=== PATIENT | male | born 1945 | race Two or more races ===

== ENCOUNTER 2019-04-27 08:39 | Day surgery (SDC) | payer OTHER ==
[~2019-04-27 08:39] MED LIST: CYMBALTA20 MG PO; FINASTERIDE5 MG PO; GABAPENTIN300 MG PO; IRBESARTAN150 MG PO; LISINOPRIL20 MG PO; SIMVASTATIN10 MG PO; TAMS0.4C PO; VITAMIN B122500 MCG PO
== END 2019-04-27 12:20 | disposition home or self-care (01) ==
LOC: CIR.AMB 08:39
DX: M51.16 Intervertebral disc disorders with radiculopathy, lumbar region (principal); M51.27 Other intervertebral disc displacement, lumbosacral region